=== PATIENT | female | born 1980 | race Caucasian/White ===

== ENCOUNTER → 2019-04-04 | Outpatient (CLI) | payer OTHER ==
[~2019-04-04] MED LIST: IBUP80TA PO; PERCOCET PO
--- NOTE | 2019-04-04 13:45 | REP ---
OB ULTRASOUND: Real-time sonographic evaluation of the gravid uterus is performed. There is a single living intrauterine gestation with an estimated gestational age 19 weeks 6 days, EDC 08/23/2019. Today's measurements indicate appropriate growth. Biometry and Growth: BPD 43 mm = 19 weeks 0 days, 25th percentile HC 162 mm = 19 weeks 0 days, 23rd percentile AC 145 mm = 19 weeks 6 days, 48th percentile FL 32 mm = 20 weeks 1 day, 55th percentile HC/AC ratio 1.12 within normal range. Estimated weight 315 grams 44th percentile. SEEN/GROSSLY UNREMARKABLE Lateral ventricles Yes Posterior fossa Yes Upper lip Yes Four-chamber heart Yes LVOT Yes RVOT Yes Stomach Yes Cord insertion Yes Three vessel cord Yes Kidneys No Bladder Yes Spine No Cervical length: Closed and measures 5.2 cm in length. heart rate: 141 beats per minute. position: Breech. Placenta: Posterior and grade 0 with no previa or abruption. Amniotic fluid: Within normal limits. Electronically Signed by Damon Sandhu MD 04/04/2019 11:37 P
== END ==
LOC: M RAD 09:48
PROVIDERS: ATTEND Specialist
DX: O09.522 Supervision of elderly multigravida, second trimester (principal)

== ENCOUNTER → 2019-05-19 | Outpatient (CLI) | payer OTHER ==
--- NOTE | 2019-05-19 12:40 | REP ---
OB ULTRASOUND: Real-time sonographic evaluation of the gravid uterus performed and demonstrates a single intrauterine gestation estimated gestational age 26 weeks 2 days, EDC 08/23/2019. Today's measurements indicate appropriate growth. Biometry and Growth: BPD 58 mm = 23 weeks 5 days, less than 5th percentile HC 237 mm = 25 weeks 5 days, 38th percentile AC 207 mm = 25 weeks 2 days, 29th percentile FL 46 mm = 25 weeks 2 days, 28th percentile HC/AC ratio 1.14 within normal range. Estimated weight 785 grams, 16th percentile. SEEN/GROSSLY UNREMARKABLE Lateral ventricles Yes Posterior fossa Yes Upper lip Yes Four-chamber heart Yes LVOT Yes RVOT Yes Stomach Yes Cord insertion No Three vessel cord Yes Kidneys Yes Bladder Yes Spine Yes Cervical length: Closed and measures 2.9 cm in length. heart rate: 150 beats per minute. position: Breech. Placenta: Posterior and grade 0 with no previa or abruption. Amniotic fluid: Within normal limits. Electronically Signed by Damon Sandhu MD 05/19/2019 01:03 P
== END ==
LOC: M RAD 11:07
PROVIDERS: ATTEND Specialist
DX: O09.522 Supervision of elderly multigravida, second trimester (principal); Z3A.26 26 weeks gestation of pregnancy

== ENCOUNTER → 2019-07-21 | Outpatient (REF) | payer OTHER | LOC: M SFHCWAGY 16:59 | PROVIDERS: ATTEND Specialist | DX: Z34.83 Encounter for supervision of other normal pregnancy, third trimester (principal) ==

== ENCOUNTER 2019-08-12 05:26 | Inpatient (IN) | payer MEDICAID, OTHER ==
[~2019-08-12] VITALS: Ht 167.6 cm; Wt 84.3 kg
[2019-08-12] VITALS (11 sets, daily range): BP systolic 104–141; BP diastolic 61–94
[~2019-08-12 05:26] MED LIST changes: +PRENTAB9 PO
[2019-08-12] MEDS ORDERED: BICITRA 30ML SOLN UDC PO ONE (06:00)
[2019-08-12] MEDS ORDERED: LR 800 ML IV ONE (06:00)
[2019-08-12] MEDS ORDERED: ceFAZolin SOD 2 GM in IV 1 EA IV ONE (06:00)
[2019-08-12] MEDS ORDERED: LR 1,000 ML IV SCH ×2 (06:00→10:00)
[2019-08-12 06:58] LABS: HEMATOCRIT 39.1 % (36.0-47.0); HEMOGLOBIN 12.9 g/dl (12.0-15.5); MEAN CORPUSCULAR HEMOGLOBIN 29.1 pg (27.0-33.0); MEAN CORPUSCULAR VOLUME 88.3 fl (80.0-96.0); PLATELET COUNT, AUTOMATED 259 10^3/uL (150-450); RED BLOOD COUNT 4.43 10^6/uL (4.00-5.40); WHITE BLOOD COUNT 19.1 10^3/uL (4.0-10.0)
[2019-08-12] MEDS ORDERED: ONDANSETRON 4MG/2ML VIAL (J2405) As Ordered ONE (08:19)
[2019-08-12] MEDS ORDERED: KETOROLAC 60 MG/2 ML VIAL (J1885) As Ordered ONE (08:19)
[2019-08-12] MEDS ORDERED: OXYTOCIN INJ 10 UNITS/ML VIAL (J2590) As Ordered ONE (08:19)
[2019-08-12] MEDS ORDERED: MORPHINE PRES-FREE INJ 10 MG/10 ML VIAL (J2274) As Ordered ONE (08:19)
[2019-08-12] MEDS ORDERED: ONDANSETRON 4MG/2ML VIAL (J2405) IV PRN ×3 (08:28→10:00)
[2019-08-12] MEDS ORDERED: diphenhydrAMINE INJ 50MG/ML VIAL (J1200) IV PRN (08:28)
[2019-08-12] MEDS ORDERED: METOCLOPRAMIDE INJ 10MG/2ML VIAL (J2765) IV PRN (08:28)
[2019-08-12] MEDS ORDERED: NALOXONE INJ 0.4 MG/1 ML VIAL (J2310) IV PRN ×2 (08:28)
[2019-08-12] MEDS ORDERED: NALBUPHINE HCL 10 MG/ML AMP (J2300) IV PRN ×2 (08:28→10:00)
[2019-08-12] MEDS ORDERED: PHENYLephrine HCL 500 MCG/5 ML (100MCG/ML) SYRINGE (J2370) As Ordered ONE (08:35)
[2019-08-12] MEDS ORDERED: ePHEDrine SULFATE 25 MG/5 ML(5MG/ML) SYRINGE As Ordered ONE (08:45)
[2019-08-12] MEDS ORDERED: ACETAMINOPHEN 1000MG 100ML IV BTL (OFIRMEV) (J0131 PER 10MG) As Ordered ONE (08:57)
[2019-08-12] MEDS ORDERED: DOCUSATE SODIUM 100 MG CAP PO PRN (09:30)
[2019-08-12] MEDS ORDERED: OXYC1TAB23 PO (09:32)
[2019-08-12] MEDS ORDERED: fentaNYL 100 MCG/2 ML INJECTION (J3010) As Ordered ONE (09:54)
[2019-08-12] MEDS ORDERED: RHOGAM 300 MCG (1500 IU) INJ (J2790) IM SCH (10:00)
[2019-08-12] MEDS: LR 1,000 ML IV SCH ×2 (10:00→18:02)
[2019-08-12] MEDS ORDERED: MEASLES,MUMPS,RUBELLA VACCINE INJ (MMR-II) (90707) SC SCH (10:00)
[2019-08-12] MEDS ORDERED: OXYTOCIN DRIP 30 UNITS in IV 1 EA IV SCH (10:00)
[2019-08-12] MEDS: fentaNYL 100 MCG/2 ML INJECTION (J3010) IV PRN ×2 (10:06→10:07)
[2019-08-12] MEDS ORDERED: LR 500 ML IV ONE ×2 (10:45→12:15)
[2019-08-12] MEDS ORDERED: fentaNYL 100 MCG/2 ML INJECTION (J3010) IV PRN (11:15)
[2019-08-12] MEDS: KETOROLAC 30 MG/ML VIAL (J1885) IV SCH ×2 (14:20→20:39)
[2019-08-12] MEDS: PERCOCET 5MG/325MG TAB PO PRN ×2 (18:02→22:48)
[2019-08-13] VITALS (7 sets, daily range): BP systolic 107–138; BP diastolic 62–76
[2019-08-13] MEDS: KETOROLAC 30 MG/ML VIAL (J1885) IV SCH (02:40)
[2019-08-13] MEDS: PERCOCET 5MG/325MG TAB PO PRN ×4 (06:05→22:21)
--- NOTE | 2019-08-13 06:48 | IPNPDOC ---
Text Note Date of Service The patient was seen on 08/13/19. NOTE Postop #1 Feels well. Adequate pain management. OOB independently. Voiding, passing flatus VSS, afebrile, normotensive Fundus firm, NT Dressing intact with old drainage noted Lochia rubra light without odor PO #1, post C/S with BTL Routine care. Anticipate D/C in am VS,Fishbone, I+O VS, Fishbone, I+O Laboratory Tests 08/12/19 06:50 Vital Signs Date Time Temp Pulse Resp B/P (MAP) Pulse Ox O2 Delivery O2 Flow Rate FiO2 08/13/19 06:40 18 08/13/19 06:00 97.4 66 132/64 (86) 100 Room Air I&O- Last 24 Hours up to 6 AM 08/13/19 06:00 Intake Total 2550 ml Output Total 2450 ml Balance 100 ml Estefanía Chun CNM Aug 13, 2019 06:48
[2019-08-13 07:53] LABS: HEMATOCRIT 35.9 % (36.0-47.0); HEMOGLOBIN 11.5 g/dl (12.0-15.5); MEAN CORPUSCULAR HEMOGLOBIN 28.6 pg (27.0-33.0); MEAN CORPUSCULAR VOLUME 89.3 fl (80.0-96.0); PLATELET COUNT, AUTOMATED 224 10^3/uL (150-450); RED BLOOD COUNT 4.02 10^6/uL (4.00-5.40); WHITE BLOOD COUNT 16.2 10^3/uL (4.0-10.0)
[2019-08-13] MEDS: PRENATAL VITAMINS CHEWABLE TABLET PO SCH (09:01)
[2019-08-13] MEDS: IBUPROFEN 800 MG TAB PO SCH ×2 (11:24→20:55)
[2019-08-14 02:00] VITALS: BP 117/63
[2019-08-14] MEDS: IBUPROFEN 800 MG TAB PO SCH (05:20)
[2019-08-14] MEDS: PERCOCET 5MG/325MG TAB PO PRN ×2 (05:26→10:40)
[2019-08-14 05:27] VITALS: BP 136/69
[2019-08-14] MEDS: PRENATAL VITAMINS CHEWABLE TABLET PO SCH (09:10)
--- NOTE | 2019-08-15 07:56 | RO ---
DATE OF PROCEDURE: 08/12/2019 PREPROCEDURE DIAGNOSIS: 38 and 3/7 weeks gestation, gestational hypertension, breech presentation, prior section times one. POSTPROCEDURE DIAGNOSIS: 38 and 3/7 weeks gestation, gestational hypertension, breech presentation, prior section times one. PROCEDURE: Repeat low transverse section. Bilateral tubal sterilization. SURGEON: Dr. Raphael Peña SUPERINTENDENT DIVISION: Azul Rowley CNM ANESTHESIA: Spinal. ESTIMATED BLOOD LOSS: 500 mL. URINE OUTPUT: 50 mL. FINDINGS: 2600 gram, 5 pound 12 ounce male infant, Apgars 9 and 9, miguelito breech position. Normal uterus, fallopian tubes and ovaries. DESCRIPTION OF PROCEDURE: The patient was taken to the operating room where spinal anesthesia was induced. She was prepped and draped in sterile fashion in the supine position. A Jerry catheter was placed. A Pfannenstiel skin incision was made with the scalpel and carried through to the fascia. The fascia was nicked and extended. The fascia was dissected off the rectus muscle. The peritoneal cavity was entered. A Mobius retractor was placed. A bladder flap was created. A curvilinear incision was made in the lower uterine segment until clear fluid was noted. This was extended manually. The was delivered from the miguelito breech position using standard maneuvers without difficulty. A nuchal cord times one was noted. The cord was doubly clamped and cut. The infant was handed off to the awaiting nurses. The placenta was expressed. The uterus was closed with #0 Vicryl in a running locked fashion. A second imbricating layer of #0 Vicryl was placed. Good hemostasis was noted. Attention was turned to the fallopian tubes. A [place] clamp was used to grasp each fallopian tube at its mid portion. A window was created in the broad ligament. A segment of fallopian tube on either side of the clamp was secured with #3-0 chromic. A segment of tube was excised bilaterally and sent to pathology. Retractor was removed and the peritoneum closed with #2-0 Vicryl in a running fashion and the fascia was closed with #0 Vicryl in a running fashion. The deep layer was irrigated and closed with #2-0 chromic. The skin was closed with #4-0 Monocryl subcuticular sutures. Sponge, instrument and needle counts were correct. Azul Rowley CNM, assisted throughout the procedure from beginning to end. She helped create each layer of the incision. She helped with tubal ligation. She helped with delivery of the fetus and closure of all subsequent layers. She was indispensable for the successful completion of the procedure.
== END 2019-08-14 11:15 | disposition home or self-care (01) | DRG 540 ==
LOC: M LDI 05:26 → M OBS 11:43
PROVIDERS: ADMIT Specialist; ATTEND Specialist
PROC: 0UB70ZZ Excision of Bilateral Fallopian Tubes, Open Approach (ICD-10-PCS; 2019-08-12)
PROC: 10D00Z1 Extraction of Products of Conception, Low, Open Approach (ICD-10-PCS; principal; 2019-08-12 07:30)
DX: O34.211 Maternal care for low transverse scar from previous cesarean delivery (principal); Z3A.38 38 weeks gestation of pregnancy; Z37.0 Single live birth; O13.4 Gestational [pregnancy-induced] hypertension without significant proteinuria, complicating childbirth; O32.1XX0 Maternal care for breech presentation, not applicable or unspecified; O69.81X0 Labor and delivery complicated by cord around neck, without compression, not applicable or unspecified; Z30.2 Encounter for sterilization

== ENCOUNTER → 2020-08-09 | Outpatient (REF) | payer OTHER, MEDICAID ==
[~2020-08-09] MED LIST changes: +OXYC1TAB23 PO
== END ==
LOC: M SFHCWAGY 16:49
PROVIDERS: ATTEND Nurse Practitioner Family
DX: N90.89 Other specified noninflammatory disorders of vulva and perineum (principal)

== ENCOUNTER → 2021-08-20 | Outpatient (CLI) | payer OTHER | LOC: M RAD 13:11 | PROVIDERS: ATTEND Family Medicine | DX: L81.9 Disorder of pigmentation, unspecified (principal); I70.203 Unspecified atherosclerosis of native arteries of extremities, bilateral legs ==

== ENCOUNTER → 2021-08-21 | Outpatient (CLI) | payer OTHER | LOC: M RAD 10:28 | PROVIDERS: ATTEND Family Medicine | DX: R10.9 Unspecified abdominal pain (principal) ==

== ENCOUNTER → 2022-09-05 | Outpatient (CLI) | payer OTHER ==
[2022-09-05 16:42] LABS: BASO # 0.1 10^3/uL (0.0-0.2); BASO % 0.4 % (0.0-1.0); EOS # 0.1 10^3/uL (0.0-0.5); EOS % 0.9 % (0.0-3.0); HEMATOCRIT 40.3 % (36.0-47.0); HEMOGLOBIN 12.4 g/dl (12.0-15.5); LYMPH # 4.9 10^3/uL (1.5-5.0); LYMPH % 38.7 % (24.0-44.0); MEAN CORPUSCULAR HEMOGLOBIN 27.8 pg (27.0-33.0); MEAN CORPUSCULAR HGB CONC 30.8 g/dl (32.0-36.5); MEAN CORPUSCULAR VOLUME 90.4 fl (80.0-96.0); MONO # 0.8 10^3/uL (0.0-0.8); MONO % 6.3 % (2.0-8.0); NEUTROPHILS # 6.8 10^3/uL (1.5-8.5); NEUTROPHILS % 53.3 % (36.0-66.0); PLATELET COUNT, AUTOMATED 380 10^3/uL (150-450); RED BLOOD COUNT 4.46 10^6/uL (4.00-5.40); WHITE BLOOD COUNT 12.7 10^3/uL (4.0-10.0)
[2022-09-05 16:50] LABS: HEMOGLOBIN A1c 5.3 % (4.0-6.0)
[2022-09-05 16:53] LABS: APPEARANCE, URINE CLOUDY (CLEAR); BACTERIA, URINE AUTO NEGATIVE (NEGATIVE); BILIRUBIN, URINE AUTO NEGATIVE (NEGATIVE); BLOOD, URINE BLOOD NEGATIVE (NEGATIVE); CALCIUM OXALATE CRYSTALS SMALL; COLOR, URINE YELLOW (YELLOW); GLUCOSE, URINE (UA) AUTO NEGATIVE (NEGATIVE); KETONE, URINE AUTO TRACE mg/dL (NEGATIVE); LEUKOCYTE ESTERASE, URINE AUTO NEGATIVE (NEGATIVE); MUCUS, URINE LARGE (NEGATIVE); NITRITE, URINE AUTO NEGATIVE (NEGATIVE); PROTEIN, URINE AUTO 1+ mg/dL (NEGATIVE); RBC, URINE AUTO 1 /HPF (0-3); SPECIFIC GRAVITY URINE AUTO 1.029 (1.002-1.035); SQUAMOUS EPITHELIAL CELL UR AU 11 /HPF (0-6); WBC, URINE AUTO 3 /HPF (0-3)
[2022-09-05 17:11] LABS: PROLACTIN 18.97 NG/ML
[2022-09-05 17:12] LABS: ALBUMIN 3.7 G/DL (3.2-5.2); ALKALINE PHOSPHATASE 54 U/L (46-116); ALT/SGPT 17 U/L (7.0-40); AST/SGOT 16 U/L (<34); BILIRUBIN,TOTAL 0.3 MG/DL (0.3-1.2); BLOOD UREA NITROGEN 13 MG/DL (9-23); CALCIUM LEVEL 9.3 MG/DL (8.5-10.1); CARBON DIOXIDE LEVEL 30 MMOL/L (20-31); CHLORIDE LEVEL 106 MMOL/L (98-107); CHOLESTEROL LEVEL 155 MG/DL (<200); CHOLESTEROL RISK RATIO 3.07 (<5); FREE T4 0.99 NG/DL (0.89-1.76); GLOMERULAR FILTRATION RATE > 60.0 (>58); GLUCOSE, FASTING 128 MG/DL (60-100); HDL CHOLESTEROL 50.4 MG/DL (>40); LDL CHOLESTEROL 88.2 MG/DL (<100); NON-HDL-C 104.6 MG/DL; POTASSIUM SERUM 3.9 MMOL/L (3.5-5.1); SODIUM LEVEL 140 MMOL/L (136-145); THYROID STIMULATING HORMONE 1.273 uIU/ML (0.55-4.78); TOTAL PROTEIN 6.4 G/DL (5.7-8.2); TRIGLYCERIDES LEVEL 82 MG/DL (<150)
== END ==
LOC: M WUC 14:11
PROVIDERS: ATTEND Family Medicine
DX: N64.3 Galactorrhea not associated with childbirth (principal); Z13.6 Encounter for screening for cardiovascular disorders; R35.0 Frequency of micturition; R79.89 Other specified abnormal findings of blood chemistry